=== PATIENT | female | born 1990 | race Caucasian/White ===

== ENCOUNTER 2025-01-12 18:19 | Emergency (ER) | payer BC, SELFPAY ==
[2025-01-12 18:22] VITALS: BP 147/94
[2025-01-12 18:52] LABS: % Basophils 0.5 % (0-2); % Eosinophils 1.6 % (0-6); % Immature Granulocytes 0.4 % (0-0.5); % Lymphocytes 16.7 % (20.5-51.1); % Monocytes 6.3 % (1.7-9.3); % Neutrophils 74.5 % (42.2-75.2); Absolute Basophils 0.1 10^3/uL (0-0.2); Absolute Eosinophils 0.2 10^3/uL (0-0.7); Absolute Immature Granulocytes 0.1 10^3/uL (0-0.05); Absolute Lymphocytes 1.9 10^3/uL (1.2-3.4); Absolute Monocytes 0.7 10^3/uL (0.1-0.6); Absolute Neutrophils 8.6 10^3/uL (1.4-6.5); Hematocrit 39.2 % (37.0-47.0); Hemoglobin 12.9 g/dL (12.0-16.0); Mean Corp Hgb Conc. 32.9 g/dL (33.0-37.0); Mean Corpuscular Hgb 27.9 pg (27.0-31.0); Mean Corpuscular Volume 84.8 fL (81.0-99.0); Nucleated Red Blood Cells % 0 %; Platelet Count 337 10^3/uL (130-400); Red Blood Cell Count 4.62 10^6/uL (4.20-5.40); Red Cell Dist. Width 13.2 % (11.5-14.5); White Blood Cell Count 11.6 10^3/uL (4.8-10.8)
[2025-01-12 19:14] LABS: ALT (SGPT) 17 U/L (0-35); AST (SGOT) 16 U/L (14-36); Albumin 4.5 g/dl (3.5-5.0); Alkaline Phosphatase 89 U/L (38-126); Blood Urea Nitrogen 11 mg/dl (7-17); Calcium 9.3 mg/dl (8.4-10.2); Carbon Dioxide 23 mmol/L (22-30); Chloride 101 mmol/L (98-107); Glucose 121 mg/dl (70-99); Potassium 4.3 mmol/L (3.5-5.1); Sodium 133 mmol/L (135-145); Total Bilirubin 0.7 mg/dl (0.2-1.3); Total Protein 7.3 g/dl (6.3-8.2); eGFR > 60.00
[2025-01-12 21:42] VITALS: BP 136/107
[2025-01-12 22:00] VITALS: BP 133/87
[2025-01-12] MEDS: DUONEB 3 ML INH (22:22)
[2025-01-12 22:25] VITALS: BP 133/87
[2025-01-12 23:03] VITALS: BP 146/91
--- NOTE | 2025-01-12 23:53 | ED.GENMED ---
History of Present Illness
General
Chief Complaint: Breathing Problem
Source: patient
Exam Limitations: none
Time Seen by Provider: 01/12/25 20:25
History of Present Illness
History of Present Illness:
34-year-old female presents with persistent cough. She was sick about a month ago with fever cough chills. She received Zithromax and inhaler and steroid and fever went away. The cough persists. She notes she is coughing so much where she is
vomiting currently. She was seen at the urgent care again thought to potentially have postnasal drip from a sinus infection and she started on she had yesterday's doses and today's first dose of this. She denies any recent extended travel or
surgery. No leg swelling or calf pain. No hemoptysis. The cough is dry. No other complaints
Past History
Past History
ED Past Medical History: GERD, Psychiatric and Other (Aouow-Jqyfymqej-Qasrs syndrome)
ED Past Surgical History: None
Social History
Tobacco: Smoker
Alcohol: None
Drug: None
Personal: Single
Living: with family
Employment: Employed
Family History
Family History: Other
Phy Exam
Physical Exam
Physical Exam:
General: Well-appearing female no acute respiratory distress
HEENT: Normocephalic atraumatic
Heart: Regular rate and rhythm no murmurs
Lungs: Clear no wheeze but dry cough.
Extremities: No cyanosis or edema
Skin: Warm no rash
Course
Orders/Labs/Results
Orders:
Orders
01/12/25 18:26
Electrocardiogram (*1) Urgent
Reason for Study: Shortness of Breath
EKG- Treatment ONCE
CXR2 [CR Chest - 2 Views ] Urgent
Comment:
Reason For Exam: cough for three wks
01/12/25 18:38
Complete Blood Count/With Diff Urgent
Comprehensive Metabolic Panel Urgent
01/12/25 22:06
Ipratropium/Albuterol Sulfate [Duoneb] 3 ml INH R NOW STA
Abnormal Lab Results
01/12/25
18:38
WBC 11.6 H 10^3/uL
(4.8-10.8)
MCHC 32.9 L g/dL
(33.0-37.0)
Abs Immat Gran (auto) 0.1 H 10^3/uL
(0-0.05)
Absolute Neuts (auto) 8.6 H 10^3/uL
(1.4-6.5)
Absolute Monos (auto) 0.7 H 10^3/uL
(0.1-0.6)
Lymphocytes % 16.7 L %
(20.5-51.1)
Sodium 133 L mmol/L
(135-145)
Glucose 121 H mg/dl
(70-99)
01/12/25 18:38
01/12/25 18:38
Vital Signs
Initial and Last Documented VS:
Initial Vital Signs
Temp Pulse Resp BP Pulse Ox
98.2 F 110 16 147/94 98
01/12/25 18:22 01/12/25 18:22 01/12/25 18:22 01/12/25 18:22 01/12/25 18:22
Last Documented Vital Signs
Temp Pulse Resp BP Pulse Ox
98.2 F 117 22 133/87 98
01/12/25 18:22 01/12/25 22:25 01/12/25 22:25 01/12/25 22:25 01/12/25 22:25
MDM/Problems Addressed
Differential Diagnosis Includes:
Cough. Consider bronchitis versus pneumonia versus postinfectious cough versus reflux versus postnasal drip
Do not suspect PE with stable vital signs and low risk factors
Chest x-ray ordered and personally reviewed and demonstrates no acute cardiopulmonary abnormality
Patient did note some relief with the nebulizer. Will send patient home with nebulizer and a steroid course. I suspect postinfectious cough. Stable for discharge
*Critical Care Note
Total Time (30-74mins, 75-104mins- exclusive of procedures): Not Applicable
ED Attending Note
-
Portions of this chart may have been created with voice recognition software.� Occasional wrong word or��sound alike� substitutions may have occurred due to the inherent limitations of voice recognition software.
Discharge Plan
Departure
Patient Disposition: Home (Routine Discharge)
Date of Disposition: 01/12/25
Time of Disposition: 23:56
Patient with high blood pressure during this ER visit?: No
Discharge Problem:
Cough
Prescriptions:
New
albuterol sulfate 2.5 mg /3 mL (0.083 %) solution for nebulization
2.5 mg inhalation Q6H PRN (Reason: bronchospasm) Qty: 75 0RF
prednisone 10 mg Tablet
See Rx Instructions .ROUTE .COMPLEX Qty: 30 0RF
Rx Instructions:
Take By Mouth:
40 mg daily x3 days, 30 mg daily x3 days,
20 mg daily x3 days, 10 mg daily x3 days.
No Action
famotidine 40 MG tablet
40 mg PO DAILY
omeprazole 20 MG capsule,delayed release(DR/EC)
20 mg PO DAILY
levonorgestrel-ethinyl estrad [Jasper (28)] 1 EACH tablet
1 ea PO DAILY
Referrals:
NONE,* [Family Provider] -
Activity Restrictions/Additional Instructions:
Use nebulizer as needed every 6 hours. Use prednisone as directed. Return if worse. Follow-up with Otherwise
Interventions
Interventions:
*Risk Screen - Suicide Last Done: 01/12/25 18:22
*General Assessment Last Done: 01/12/25 22:22
*Neglect/Abuse Screening Last Done: 01/12/25 18:22
*ED COVID-19 Vaccine History Last Done: 01/12/25 22:22
ED- Cardiac Assessment Last Done: 01/12/25 21:41
ED- Pulmonary Assessment Last Done: 01/12/25 21:41
Discharge Date and Time
Print Language: WELSH
[2025-01-13] VITALS: BP 139/89
== END 2025-01-13 00:30 | disposition home or self-care (01) ==
LOC: EMR 18:19
PROVIDERS: EMERGENCY PHYSICIAN Emergency Medicine
DX: R05.9 Cough, unspecified (principal); F17.200 Nicotine dependence, unspecified, uncomplicated
CPT/HCPCS: 99285; 94640; 71046; 80053; 85025; 93005